=== PATIENT | female | born 1945 | race Caucasian/White ===

== ENCOUNTER → 2020-06-02 | Outpatient (CLI) | payer MEDICARE, OTHER ==
--- NOTE | 2020-06-02 14:04 | MR ---
EXAMINATION TYPE: MR knee LT wo con DATE OF EXAM: 06/02/2020 COMPARISON: None HISTORY: Fell on Left Knee 12 days ago, Pain, Swelling, internal arrangement per order. TECHNIQUE: Multiplanar, multisequence imaging of the left knee is performed without IV contrast. FINDINGS: MEDIAL MENISCUS: Granular-shaped increased signal posterior horn does not definitively extend to chilango cular surface. LATERAL MENISCUS: Anterior and posterior horns are intact without tear. CRUCIATE LIGAMENTS: The anterior and posterior cruciate ligaments are intact and unremarkable. COLLATERAL LIGAMENTS: The medial collateral ligament and lateral collateral ligament complex are inta ct and unremarkable. EXTENSOR MECHANISM: Visualized quadriceps and patellar tendons are intact. EFFUSION: Moderate to large size suprapatellar joint effusion. POPLITEAL CYST: Small to moderate sized popliteal/goldman cyst. TRICOMPARTMENT SPACES: Small to moderate tricompartment joint space loss. No significant spurring. CARTILAGE: Some mild tricompartment cartilaginous loss. No full-thickness cartilaginous defect. BONE MARROW SIGNAL: There is serpiginous low T1 signal through the tibial plateau extending to involv e the intercondylar notch having extension to anterior and posterior articular surfaces. Some surroun ding heterogeneous increased T2 signal. There is extension to the proximal tibial metaphysis extendin g laterally and posteriorly on images. No displaced cortical fragments clearly seen. OTHER: No additional significant abnormality is appreciated. IMPRESSION: 1. Acute/subacute comminuted nondisplaced intra-articular fracture of the proximal tibial metaphysis. No tibial fracture fragment step-off. Surrounding osseous contusion. 2. Intrasubstance tear posterior horn of medial meniscus, no full-thickness meniscal or ligamentous t ear clearly seen. 3. Moderate to large suprapatellar joint effusion. 4. Small to moderate sized popliteal cyst. 5. 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 A Yellow level critical message alert has been initiated for Miriam Coronado MD via the [employer] Critical Results System on 06/02/2020 2:02 PM. This message alert has been sent to Miriam Coronado MD via the preferences provided by the clinician for the receipt of Radiology Critical Findings. [employer] e ID [id number].
== END | disposition home or self-care (01) ==
LOC: RADMRIMAIN 12:08
PROVIDERS: ATTEND Internal Medicine Rheumatology
DX: S80.02XA Contusion of left knee, initial encounter (principal); S83.242A Other tear of medial meniscus, current injury, left knee, initial encounter; M17.12 Unilateral primary osteoarthritis, left knee